=== PATIENT | female | born 1975 | race Caucasian/White ===

== ENCOUNTER 2016-09-23 16:36 | Emergency (ER) | payer BC ==
[2016-09-23 16:50] VITALS: BP 129/65
[2016-09-23] MEDS ORDERED: Sodium Chloride 0.9% 1,000 ML IV STA (17:05)
[2016-09-23] MEDS ORDERED: Ondansetron 4 MG/2 ML SDV IVPUSH ONE (17:05)
[2016-09-23] MEDS ORDERED: Sodium Chloride 0.9% 10 ML Syringe FLUSH PRN (17:05)
--- NOTE | 2016-09-23 17:17 | EDM.PDOC ---
ED HPI GI/ABDOMINAL - General Chief Complaint: Abdominal Pain Stated Complaint: ABDOMINAL PAIN Time Seen by Provider: 09/23/16 16:48 Source of Information: Reports: Patient History Limitations: Reports: No limitations - History of Present Illness INITIAL COMMENTS - FREE TEXT/NARRATIVE: The patient presents with abdominal pain. This started about 4pm today. Last night she started with some diarrhea. She also has some nausea. She has no vomiting. She has no dysuria. She is breast feeding and she has not had her mentrual cycle for 1 year. She did not eat any bad food that she knows of. 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 She does not have a gallbladder but she does have an appendix. The pain is in the mid to upper abdomen and it is a crampy pain that comes and goes. Timing/Duration: Reports: Hour(s): (since 4pm) Location: other (Upper abdomen) Quality: Reports: cramping Severity: moderate Context: Reports: sick contact (Maybe she is a teacher). Denies: bad/ questionable food, out of country travel, recent surgery, recent trauma, lifting , activity/exercise Associated Symptoms (-Female): Reports: diarrhea, loss of appetite, nausea/ vomiting. Denies: chest pain, fever/chills - Related Data Allergies/ADRs: Allergies Allergy/AdvReac Type Severity Reaction Status Date / Time No Known Allergies Allergy Verified 09/23/16 16:46 Home Meds: Home Meds Ondansetron [Zofran ODT] 4 mg PO Q6H PRN #20 tab.dis 09/23/16 [Rx] Past Medical History [employer] History: Reports: Endocrine/Metabolic History: Reports: Diabetes, gestational - Past Surgical History Musculoskeletal Surgical History: Reports: Other (see below) Other Musculoskeletal Surgeries/Procedures:: Right ankle Social & Family History - Tobacco Use Smoking Status *Q: Never Smoker - Alcohol Use Days Per Week of Alcohol Use: 0 - Recreational Drug Use Recreational Drug Use: No Drug Use in Last 12 Months: No ED ROS GENERAL - Review of Systems Review Of Systems: See Below Constitutional: Reports: no symptoms HEENT: Reports: No symptoms Respiratory: Reports: No Symptoms Cardiovascular: Reports: No symptoms Endocrine: Reports: no symptoms GI/Abdominal: Reports: Abdominal pain, Nausea, Vomiting : Reports: no symptoms Musculoskeletal: Reports: no symptoms Skin: Reports: no symptoms ED EXAM, GI/ABD - Physical Exam Exam: See Below Exam Limited By: No limitations General Appearance: alert, no apparent distress Ears: normal external exam Nose: normal inspection Head: atraumatic, normocephalic Neck: normal inspection Respiratory/Chest: no respiratory distress, lungs clear, normal breath sounds Cardiovascular: regular rate, rhythm, no edema, no murmur GI/Abdominal: soft, no organomegaly, no mass, tenderness (Mild tenderness to the mid to upper abdomen) Back Exam: normal inspection Extremities: normal inspection Course - Vital Signs Last Recorded V/S: Last Vital Signs Temp 98.5 F 09/23/16 16:47 Pulse 74 09/23/16 16:47 Resp 16 09/23/16 16:47 BP 129/65 09/23/16 16:47 Pulse Ox 98 09/23/16 16:47 - Orders/Labs/Meds Orders: Active Orders 24 hr Category Date Time Status Peripheral IV Care [RC] . DIRECTED Care 09/23/16 17:07 Active UA W/MICROSCOPIC [URIN] Stat Lab 09/23/16 18:30 Results Sodium Chloride 0.9% [Saline Flush] Med 09/23/16 17:05 Active 10 ml FLUSH ASDIRECTED PRN ED Antiemetic Medication Reflex [OM.PC] Stat Oth 09/23/16 17:08 Ordered Peripheral IV Insertion Adult [OM.PC] Stat Oth 09/23/16 17:05 Ordered Medication Orders Sodium Chloride (Saline Flush) 10 ml FLUSH ASDIRECTED PRN PRN Reason: Keep Vein Open Last Admin: 09/23/16 17:28 Dose: 10 ml Labs: Laboratory Tests 09/23/16 09/23/16 09/23/16 Range/Units 17:19 17:19 17:19 WBC 6.69 (3.98-10.04) K/mm3 RBC 4.41 (3.98-5.22) M/mm3 Hgb 13.7 (11.2-15.7) gm/L Hct 41.2 (34.1-44.9) % MCV 93.4 (79.4-94.8) fl MCH 31.1 (25.6-32.2) pg MCHC 33.3 (32.2-35.5) g/dl RDW Std Deviation 43.1 (36.4-46.3) fL Plt Count 159 L (182-369) K/mm3 MPV 10.3 (9.4-12.3) fl Neut % (Auto) 70.8 (34.0-71.1) % Lymph % (Auto) 21.5 (19.3-51.7) % [place] % (Auto) 6.4 (4.7-12.5) % Eos % (Auto) 1.2 (0.7-5.8) Baso % (Auto) 0.0 L (0.1-1.2) % Neut # (Auto) 4.73 (1.56-6.13) K/mm3 Lymph # (Auto) 1.44 (1.18-3.74) K/mm3 [place] # (Auto) 0.43 H (0.24-0.36) K/mm3 Eos # (Auto) 0.08 (0.04-0.36) K/mm3 Baso # (Auto) 0.00 L (0.01-0.08) K/mm3 Sodium 143 (136-145) mEq/L Potassium 3.0 L (3.5-5.1) mEq/L Chloride 105 (98-107) mEq/L Carbon Dioxide 26 (21-32) mEq/L Anion Gap 15.0 (5-15) BUN 18 (7-18) mg/dL Creatinine 0.7 (0.55-1.02) mg/dL Est Cr Clr Drug Dosing 97.09 mL/min Estimated GFR (MDRD) > 60 (>60) mL/min BUN/Creatinine Ratio 25.7 H (14-18) Glucose 112 H (74-106) mg/dL Calcium 8.7 (8.5-10.1) mg/dL Total Bilirubin 0.6 (0.2-1.0) mg/dL AST 81 H (15-37) U/L ALT 53 (14-59) U/L Alkaline Phosphatase 147 H (46-116) U/L Total Protein 7.8 (6.4-8.2) g/dl Albumin 4.0 (3.4-5.0) g/dl Globulin 3.8 gm/dL Albumin/Globulin Ratio 1.1 (1-2) Lipase 87 (73-393) U/L HCG, Qual Negative (NEGATIVE) Urine Color (Yellow) Urine Appearance (Clear) Urine pH (5.0-8.0) Ur Specific [place] (1.005-1.030) Urine Protein (Negative) Urine Glucose (UA) (Negative) Urine Ketones (Negative) Urine Occult Blood (Negative) Urine Nitrite (Negative) Urine Bilirubin (Negative) Urine Urobilinogen (0.2-1.0) Ur Leukocyte Esterase (Negative) 09/23/16 Range/Units 18:30 WBC (3.98-10.04) K/mm3 RBC (3.98-5.22) M/mm3 Hgb (11.2-15.7) gm/L Hct (34.1-44.9) % MCV (79.4-94.8) fl MCH (25.6-32.2) pg MCHC (32.2-35.5) g/dl RDW Std Deviation (36.4-46.3) fL Plt Count (182-369) K/mm3 MPV (9.4-12.3) fl Neut % (Auto) (34.0-71.1) % Lymph % (Auto) (19.3-51.7) % [place] % (Auto) (4.7-12.5) % Eos % (Auto) (0.7-5.8) Baso % (Auto) (0.1-1.2) % Neut # (Auto) (1.56-6.13) K/mm3 Lymph # (Auto) (1.18-3.74) K/mm3 [place] # (Auto) (0.24-0.36) K/mm3 Eos # (Auto) (0.04-0.36) K/mm3 Baso # (Auto) (0.01-0.08) K/mm3 Sodium (136-145) mEq/L Potassium (3.5-5.1) mEq/L Chloride (98-107) mEq/L Carbon Dioxide (21-32) mEq/L Anion Gap (5-15) BUN (7-18) mg/dL Creatinine (0.55-1.02) mg/dL Est Cr Clr Drug Dosing mL/min Estimated GFR (MDRD) (>60) mL/min BUN/Creatinine Ratio (14-18) Glucose (74-106) mg/dL Calcium (8.5-10.1) mg/dL Total Bilirubin (0.2-1.0) mg/dL AST (15-37) U/L ALT (14-59) U/L Alkaline Phosphatase (46-116) U/L Total Protein (6.4-8.2) g/dl Albumin (3.4-5.0) g/dl Globulin gm/dL Albumin/Globulin Ratio (1-2) Lipase (73-393) U/L HCG, Qual (NEGATIVE) Urine Color Yellow (Yellow) Urine Appearance Slt cloudy H (Clear) Urine pH 5.5 (5.0-8.0) Ur Specific [place] > or = 1.030 (1.005-1.030) Urine Protein Trace H (Negative) Urine Glucose (UA) Negative (Negative) Urine Ketones 1+ H (Negative) Urine Occult Blood Negative (Negative) Urine Nitrite Negative (Negative) Urine Bilirubin Negative (Negative) Urine Urobilinogen 4.0 H (0.2-1.0) Ur Leukocyte Esterase Negative (Negative) Meds: Medications Generic Name Dose Route Start Last Admin Trade Name Freq PRN Reason Stop Dose Admin Sodium Chloride 10 ml 09/23/16 17:05 09/23/16 17:28 Saline Flush FLUSH 10 ml ASDIRECTED PRN Administration Keep Vein Open Discontinued Medications Generic Name Dose Route Start Last Admin Trade Name Freq PRN Reason Stop Dose Admin Sodium Chloride 1,000 mls @ 1,000 mls/hr 09/23/16 17:05 09/23/16 17:25 Normal Saline IV 09/23/16 18:04 1,000 mls/hr .BOLUS STA Administration Ondansetron HCl 4 mg 09/23/16 17:05 09/23/16 17:26 Zofran IVPUSH 09/23/16 17:06 4 mg ONETIME ONE Administration - Re-Assessments/Exams Free Text/Narrative Re-Assessment/Exam: 09/23/16 17:17 I ordered an IV NS 1L bolus, zofran 4mg IV, labs, and UA. 09/23/16 18:46 Her CBC looks good. Her K was a little low at 3. Her BUN/creatinine ratio is 25.7. Her glucose is a little elevated at 112. Her alk phos is elevated at 147. Her lipase is negative. He HCG is negative and her UA shows no sign of infection. Departure - Departure Time of Disposition: 18:50 Disposition: Home, Self-Care 01 Condition: good Clinical Impression: Gastroenteritis, Hypokalemia Prescriptions: Ondansetron [Zofran ODT] 4 mg PO Q6H PRN #20 tab.dis PRN Reason: Nausea/Vomiting Referrals: PCP,Unknown [Primary Care Provider] - Graeme Mathews [Physician] - 3 Days (If not better) Forms: ED Department Discharge Additional Instructions: Drink plenty of fluids and advance your diet as tolerated. Take the zofran every 6 hours as needed for nausea and vomiting. Please return if you are worse such as more pain, nausea, vomiting or pain that moves to your right lower abdomen where your appendix is. Your potassium was a little low. Take a multi vitamin that contains potassium. Follow up with your doctor or Dr Mathews in 3 days if you are not better. - My Orders Last 24 Hours: My Active Orders 09/23/16 17:05 Sodium Chloride 0.9% [Saline Flush] 10 ml FLUSH ASDIRECTED PRN Peripheral IV Insertion Adult [OM.PC] Stat 09/23/16 17:07 Peripheral IV Care [RC] . DIRECTED 09/23/16 17:08 ED Antiemetic Medication Reflex [OM.PC] Stat 09/23/16 18:30 UA W/MICROSCOPIC [URIN] Stat - Assessment/Plan Last 24 Hours: My Active Orders 09/23/16 17:05 Sodium Chloride 0.9% [Saline Flush] 10 ml FLUSH ASDIRECTED PRN Peripheral IV Insertion Adult [OM.PC] Stat 09/23/16 17:07 Peripheral IV Care [RC] . DIRECTED 09/23/16 17:08 ED Antiemetic Medication Reflex [OM.PC] Stat 09/23/16 18:30 UA W/MICROSCOPIC [URIN] Stat
== END 2016-09-23 19:04 | disposition home or self-care (01) ==
LOC: JD.ED 16:36
DX: K52.9 Noninfective gastroenteritis and colitis, unspecified (principal); E87.6 Hypokalemia; Z98.890 Other specified postprocedural states
CPT/HCPCS: 36415; 80053; 81001; 83690; 84703; 85025; 96361; 96374; 99284; J2405; J7040; J7050

== ENCOUNTER 2024-01-05 06:36 | Day surgery (SDC) | payer BC ==
[~2024-01-05 06:36] MED LIST: Sodium Chloride 0.9% 10 ML Syringe FLUSH PRN; Sodium Chloride 0.9% 10 ML Syringe FLUSH SCH
[2024-01-05] MEDS: Lactated Ringers 1,000 ML IV SCH (06:50)
[2024-01-05] MEDS ORDERED: Lidocaine 1% 4 ML ONE (07:15)
[2024-01-05] MEDS ORDERED: Propofol 200 MG/20 ML SDV ONE ×3 (07:15)
[2024-01-05] MEDS ORDERED: fentaNYL 100 MCG/2 ML SDV ONE (07:17)
[2024-01-05 08:05] VITALS: BP 116/71; PULSE 72
== END 2024-01-05 08:45 | disposition home or self-care (01) ==
LOC: JD.SDS 06:36
PROVIDERS: ATTEND Surgery
DX: Z12.11 Encounter for screening for malignant neoplasm of colon (principal); F32.A Depression, unspecified; Z79.899 Other long term (current) drug therapy
CPT/HCPCS: 45380; J2704; J3010; J7120; 00811; J3490